=== PATIENT | male | born 1985 | race Caucasian/White ===

== ENCOUNTER 2016-08-30 19:43 | Emergency (ER) | payer MEDICARE ==
[~2016-08-30 19:43] MED LIST: GEODON20 M1; IBUPROFEN PO; INVEGA SUS78 MG/0.5 IM; NAPROSYN500 MG PO; NO MEDICATIONS; VOLTAREN75 MG PO
== END 2016-08-30 21:50 | disposition left against medical advice (07) ==
LOC: CED 19:43
DX: Z53.21 Procedure and treatment not carried out due to patient leaving prior to being seen by health care provider (principal)

== ENCOUNTER 2016-09-05 11:54 | Emergency (ER) | payer MEDICARE | END 2016-09-05 13:10 | disposition left against medical advice (07) | LOC: SED 11:54 | DX: Z53.21 Procedure and treatment not carried out due to patient leaving prior to being seen by health care provider (principal) ==